=== PATIENT | male | born 1945 | race American Indian/Alaskan Native ===

== ENCOUNTER 2017-08-19 14:08 | Emergency (ER) | payer MEDICARE ==
[2017-08-19 14:08] VITALS: BMI 28.8
--- NOTE | 2017-08-19 14:56 | ED PDOC ---
Arrival/HPI - General Chief Complaint: GI Problem Time Seen by Provider: 08/19/17 14:47 Historian: Patient - History of Present Illness Narrative History of Present Illness (Text): 08/19/17 14:55 Patient is a 72 year old male, with past medical history of hypertension, presents to the Emergency Department complaining of hemorrhoids since 1 week. Patient informs occasional discomfort sitting and standing up and describes "feeling dry". Patient reports discomfort wiping but denies any hematochezia or changes in bowel movement. Patient denies any fever, chills, nausea, vomiting, diarrhea, abdominal pain, chest pain, shortness of breath or any other complaints. Time/Duration: 1 week Symptom Onset: Gradual Symptom Course: Unchanged Quality: Aching Activities at Onset: Light Context: Sitting Past Medical History - Provider Review Nursing Documentation Reviewed: Yes - Cardiac Hx Cardiac Disorders: Yes Hx Hypertension: Yes - Pulmonary Hx Respiratory Disorders: No - Neurological Hx Neurological Disorder: No - HEENT Hx HEENT Disorder: No - Renal Hx Renal Disorder: No - Endocrine/Metabolic Hx Endocrine Disorders: No - Hematological/Oncological Hx Blood Disorders: No - Integumentary Hx Dermatological Disorder: No - Musculoskeletal/Rheumatological Hx Musculoskeletal Disorders: No - Gastrointestinal Hx Gastrointestinal Disorders: No - Genitourinary/Gynecological Hx Genitourinary Disorders: No - Psychiatric Hx Psychophysiologic Disorder: No Hx Substance Use: No - Past Surgical History Past Surgical History: No Previous - Suicidal Assessment Feels Threatened In Home Enviroment: No Family/Social History - Physician Review Nursing Documentation Reviewed: Yes Family/Social History: No Known Family HX Smoking Status: Former Smoker Hx Alcohol Use: No Hx Substance Use: No Allergies/Home Meds Allergies/Adverse Reactions: Allergies No Known Allergies Allergy (Verified 08/19/17 14:32) Home Medications: Home Meds Medication Instructions Recorded Confirmed cloNIDine [Catapres] 0.2 mg PO DAILY 05/09/14 08/19/17 Review of Systems - Review of Systems Constitutional: absent: Fatigue, Fevers Eyes: absent: Photophobia Respiratory: absent: SOB Cardiovascular: Normal. absent: Chest Pain Gastrointestinal: Other (Hemorrhoid). absent: Abdominal Pain, Stool Changes, Constipation, Diarrhea, Nausea, Vomiting, Hematochezia, Hematemesis, Food Intolerance Genitourinary Male: absent: Dysuria Musculoskeletal: absent: Back Pain Skin: absent: Rash Neurological: absent: Headache Endocrine: absent: Polyuria Hemo/Lymphatic: absent: Easy Bleeding Physical Exam - Physical Exam Narrative Physical Exam (Text): 08/19/17 14:57 Eyes: PERRL. EOMI. Conjunctivae are not pale. Sclera anicteric. ENT: Mucous membranes are moist and intact. Oropharynx is clear and symmetric. Cardiovascular: Regular rate. Regular rhythm. Pulmonary/Chest: No evidence of respiratory distress. Abdominal: Soft and non-distended. There is no tenderness. No rebound, guarding, or rigidity. No organomegaly. Good bowel sounds. Back: No CVA tenderness. Neuro: normal rectal tone, no motor or sensory deficits Rectal: one cm prolapsed external hemorrhoid, NONtender, no bleeding, easily reducible Vital Signs Reviewed: Yes Vital Signs Temp Pulse Resp BP Pulse Ox 08/19/17 14:34 99.1 F 88 16 132/75 95 Temperature: Afebrile Blood Pressure: Normal Pulse: Regular Respiratory Rate: Normal Appearance: Positive for: Well-Appearing, Non-Toxic, Comfortable Pain Distress: None Mental Status: Positive for: Alert and Oriented X 3 Medical Decision Making ED Course and Treatment: 08/19/17 15:00 Impression: 72 year old male presents to the Emergency Department for possible hemorrhoid. Differential Diagnosis included but are not limited to: hemorrhoids Plan: -- Consult -- Reassess and disposition Progress Notes: Patient examined by me, noted to have external hemorrhoid, nontender. Not bleeding. Reducible. He has not had colonscopy or gi workup. Surgery consulted based on size of external hemorrhoid. Surgery team evaluated patient. Will d/c with colace, anusol, advised follow-up with surgery. Patient will be discharged. He has been advised to follow-up for colonscopy, return for any pain or bleeding or worsening of symptoms. 08/19/17 21:23 - Scribe Statement The provider has reviewed the documentation as recorded by the Kwesiibbryan Mcgraw. All medical record entries made by the Kwesiibbryan were at my direction and personally dictated by me. I have reviewed the chart and agree that the record accurately reflects my personal performance of the history, physical exam, medical decision making, and the department course for this patient. I have also personally directed, reviewed, and agree with the discharge instructions and disposition. Disposition/Present on Arrival - Present on Arrival Any Indicators Present on Arrival: No History of DVT/PE: No History of Uncontrolled Diabetes: No Urinary Catheter: No History of Decub. Ulcer: No History Surgical Site Infection Following: None - Disposition Have Diagnosis and Disposition been Completed?: Yes Diagnosis: Hemorrhoid Disposition: HOME/ ROUTINE Disposition Time: 15:40 Patient Plan: Discharge Patient Problems: Current Active Problems Problem Status Onset Hemorrhoid Acute Condition: GOOD Discharge Instructions (ExitCare): Hemorrhoids (DC), Colon and Rectal Cancer Screening Additional Instructions: Follow-up with surgeon, Dr. Yee Christianson, in 1-2 weeks at his clinic in [facility]. Call tomorrow to make appointment @ [phone]. For any pain, any bleeding, any constipation or difficulty moving bowels, any bloody bowel movements, any fevers/chills, any abdominal pain, get rechecked. See your primary physician to schedule a colonoscopy Use medication as directed, please follow-up with specialist as directed. Prescriptions: Hydrocortisone [Anusol-HC] 25 mg RC DAILY PRN #3 sup PRN Reason: Hemorrhoids Docusate [Colace] 100 mg PO DAILY #7 cap Referrals: Clinic,Med Surg [Non-Staff] - Follow up with primary (Call to set up an appointment with Dr. Christianson at his surgical clinic in the basement floor of [address] [address] ) Forms: [email or web address] (French)
--- NOTE | 2017-08-19 16:42 | CP.PCM.CON ---
History of Present Illness - History of Present Illness History of Present Illness: General Surgery consult note for Dr. Christianson Consulted: hemorrhoid Patient is a 72M with PMH of HTN who has had a feeling for the past week of something being pushed out of this rectum when he has a bowel movement. Patient states that when he stands up afterwards it feels like it retracts. Patient complains of itching at baseline. He denies any constipation--has one bowel movement a day normal in consistency and color. Patient denies melena, hematochezia, abdominal pain, nausea, vomiting, fevers, or chills, or any other symptoms. Patient does not take any pain medications. Patient denies any previous episodes. Patient states he has never had a colonoscopy before. PMH: HTN, HLD PSH: left thumb repair ALL: NKDA Social: denies tobacco, 2 beers or 2 glasses of wine per day, denies illicit drugs Review of Systems - Review of Systems All systems: reviewed and no additional remarkable complaints except (as per HPI ) Past Patient History - Past Medical History & Family History Past Medical History?: Yes Past Family History: Reviewed and not pertinent - Past Social History Smoking Status: Former Smoker Alcohol: < 2 Drinks/Day (2 glasses of wine or 2 beers) Drugs: Denies - CARDIAC Hx Cardiac Disorders: Yes Hx Hypertension: Yes - PULMONARY Hx Respiratory Disorders: No - NEUROLOGICAL Hx Neurological Disorder: No - HEENT Hx HEENT Problems: No - RENAL Hx Chronic Kidney Disease: No - ENDOCRINE/METABOLIC Hx Endocrine Disorders: No - HEMATOLOGICAL/ONCOLOGICAL Hx Blood Disorders: No - INTEGUMENTARY Hx Dermatological Problems: No - MUSCULOSKELETAL/RHEUMATOLOGICAL Hx Musculoskeletal Disorders: No - GASTROINTESTINAL Hx Gastrointestinal Disorders: No - GENITOURINARY/GYNECOLOGICAL Hx Genitourinary Disorders: No - PSYCHIATRIC Hx Psychophysiologic Disorder: No Hx Substance Use: No - SURGICAL HISTORY Hx Surgeries: No Meds Home Medications: Home Medication List Medication Instructions Recorded Confirmed Type Docusate [Colace] 100 mg PO DAILY #7 cap 08/19/17 Rx Hydrocortisone [Anusol-HC] 25 mg RC DAILY PRN #3 sup 08/19/17 Rx Allergies/Adverse Reactions: Allergies Allergy/AdvReac Type Severity Reaction Status Date / Time No Known Allergies Allergy Verified 08/19/17 14:32 Physical Exam - Constitutional Appears: Well, Non-toxic, No Acute Distress - Head Exam Head Exam: ATRAUMATIC, NORMOCEPHALIC - Eye Exam Eye Exam: Normal appearance. absent: Conjunctival injection, Scleral icterus - ENT Exam ENT Exam: Mucous Membranes Moist, Normal Oropharynx - Respiratory Exam Respiratory Exam: NORMAL BREATHING PATTERN. absent: Accessory Muscle Use, Respiratory Distress - Cardiovascular Exam Cardiovascular Exam: RRR - GI/Abdominal Exam GI & Abdominal Exam: Soft. absent: Distended, Tenderness - Rectal Exam Rectal Exam: Hemorrhoids (anterior non-erythemaotous, non-tender external hemorrhoid approximately 1cm in diameter). absent: Bloody Stool, Fecal Impaction Additional comments: sphincter tone intact, no internal masses. No prolapse was able to be appreciated. - Extremities Exam Extremities exam: Positive for: normal inspection. Negative for: pedal edema - Neurological Exam Neurological exam: Alert, Oriented x3 - Psychiatric Exam Psychiatric exam: Normal Affect, Normal Mood - Skin Skin Exam: Dry, Intact, Normal Color, Warm Results - Vital Signs Recent Vital Signs: Last Vital Signs Temp 99.1 F 08/19/17 14:34 Pulse 88 08/19/17 14:34 Resp 16 08/19/17 14:34 BP 132/75 08/19/17 14:34 Pulse Ox 95 08/19/17 14:34 Assessment & Plan - Assessment and Plan (Free Text) Assessment: 72M with non-thrombosed external hemorrhoid Plan: Patient is clear for discharge from a surgical standpoint with outpatient follow up with Dr. Christianson in his clinic in [facility] Patient should take daily colace or pericolace, fiber supplementation, drink 8- 10 glasses of water to prevent dehydration. Patient should also use sitz baths and a local steroid cream PRN for any symptoms Patient was also strongly encouraged to undergo outpatient colonoscopy. Described in detail the importance not only for evaluation of current issue but also for routine evaluation and cancer detection. Patient verbalized understanding and agreed to speak to his primary physician about it. Patient verbalized understanding and agreement with the above plan. Patient was encouraged to call Dr. Christianson's clinic or to return to ER for any concerning symptoms Discussed at length with Dr. Christianson and Dr. Radha Blevins, PGY2
[2017-08-20 00:13] VITALS: BP 127/69; PULSE 80; RESP 18; TEMP 98.9; O2SAT 96
== END 2017-08-19 16:00 | disposition home or self-care (01) ==
LOC: ED 14:08
DX: K64.4 Residual hemorrhoidal skin tags (principal); I10 Essential (primary) hypertension; E78.5 Hyperlipidemia, unspecified; Z87.891 Personal history of nicotine dependence